=== PATIENT | male | born 1955 | race Caucasian/White ===

== ENCOUNTER 2018-09-26 12:16 | Emergency (ER) | payer MEDICARE, OTHER ==
[2018-09-26 13:34] LABS: ABS Basophils 0 10^3/ul (0-0.2); ABS Eosinophils 0 10^3/ul (0-0.6); ABS Monocytes 0.3 10^3/ul (0-0.8); ABS Neutrophils 4.1 10^3/ul (1.5-7.7); ABS Nucleated RBC 0 10^3/ul; Eosinophil % 0.4 %; Hematocrit 40 % (42-52); Hemoglobin 13.3 g/dl (14.0-18.0); Lymphocyte % 17.7 %; Mean Corpuscular HGB Conc 34 g/dl (31-36); Mean Corpuscular Hemoglobin 30 pg (27-31); Mean Corpuscular Volume 88 fL (80-94); Mean Platelet Volume 8.5 fL (7.4-10.4); Nucleated Red Blood Cells % 0; Platelet Count 202 10^3/ul (150-450); Red Cell Distribution Width 15 % (10.5-15); White Blood Count 5.4 10^3/ul (3.5-10.8)
[2018-09-26 13:52] LABS: ALT < 3 U/L (7-52); AST 13 U/L (13-39); Albumin/Globulin Ratio 1.3 (1-3); Alkaline Phosphatase 82 U/L (34-104); Anion Gap 7 mmol/L (2-11); BUN/Creatinine Ratio 17.3 (8-20); Blood Urea Nitrogen 17 mg/dL (6-24); CO2 Carbon Dioxide 28 mmol/L (22-32); Calcium 9.2 mg/dL (8.6-10.3); Chloride 100 mmol/L (101-111); EGFR African American 94.4 (>60); Glucose 92 mg/dL (70-100); Magnesium 2.1 mg/dL (1.9-2.7); Potassium 3.7 mmol/L (3.5-5.0); Sodium 135 mmol/L (135-145)
[2018-09-26 14:20] LABS: Urine Appearance Cloudy; Urine Bacteria Absent (Absent); Urine Bilirubin Negative (Negative); Urine Blood 2+ (Negative); Urine Color Yellow; Urine Glucose Negative (Negative); Urine Ketones 1+ (Negative); Urine Nitrite Negative (Negative); Urine Protein Negative (Negative); Urine Red Blood Cell 3+(>10/hpf) (Absent); Urine Specific Gravity 1.026 (1.010-1.030); Urine Squamous Epithelial Cell Present (Absent); Urine Urobilinogen Positive (Negative); Urine White Blood Cell Trace(0-5/hpf) (Absent)
[2018-09-26 15:51] VITALS: BP 134/86
--- NOTE | 2018-09-26 17:51 | CONS ---
NEUROLOGY CONSULTATION: DATE OF CONSULT: 09/26/18 REFERRING PROVIDER: KITA Hurley LOCATION: He is in the emergency room. CHIEF COMPLAINT: Progressive supranuclear palsy, hallucinations. 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 He also has REM behavior disorder. He had been having decline in motor function, but also cognition for a month or more. He was on Azilect for a while, but he seemed to do no better if not worse and so that was stopped after about a week. He continued to have problems with hallucinations and his sleep-wake cycle was disrupted. He be up in the middle of the night and not know what time of day it was. He would fall asleep briefly in the middle of the day. Once he would fall asleep, his described excessive movements of his limbs. He had been put on clonazepam several months back and it seemed to help at first, but then it did not seem to help so much after a while. They stopped at the end of August. Most recently, he was put on a ReQuip which he took for about a week, but his hallucinations and sleep-wake cycle disorder was no better. His day and night disorientation also continued to be very problematic. We were to put him on a scheduled coming next week over things, but his felt things were intolerable at home and so brought him to the emergency room. PAST MEDICAL HISTORY: Essentially notable for Parkinsonism and chronic tobacco use. MEDICATIONS AT HOME: Consist of: 1. Carbidopa/levodopa 1 tablet p.o. t.i.d. 25/100. 2. Amantadine 100 mg in the morning and at noon. 3. He just recently stopped a ReQuip. ALLERGIES: He does not have any drug allergies. SOCIAL HISTORY: He lives with his . He smokes every day. He does not drink alcohol. He has been eating well. He has not lost any weight. He has not had any problems with nausea, vomiting, lightheadedness, or faints. He has not had any falls. There is no history of cardiac disease, diabetes, or hypertension. PHYSICAL EXAM: He is afebrile, temperature 98.7. Blood pressure is 128/90, heart rate 92 and regular. Respiratory rate is 18 and oxygen saturation is 97% on room air. Neurological exam: He has grade 3 hypomimia. He has restricted eye movements. He has a little bit of tremulousness in the hands, but no rest tremor. He has diffuse cogwheel rigidity, which is mild to moderate and is fairly symmetric. Finger taps are slow bilaterally. He is oriented to person and place currently. He knows its daytime. Language is fluent, but his train of thought is easily lost. DIAGNOSTIC STUDIES/LAB DATA: Laboratory data includes a normal CBC other than a mild anemia with a hemoglobin of 13.3, normal chemistry profile other than total bilirubin 1.2. Urinalysis notable for positive urobilinogen, 3+ red blood cells, 1+ ketone, 2+ blood. IMPRESSION: Impression is that of possible progressive supranuclear palsy with worsening neuropsychiatric symptoms. I think the first order of business is to stop the amantadine. Reinstitute clonazepam 0.5 mg at bedtime at least temporarily. We will plan to see him back in the office next week to see how he is doing. If he is not doing better, I will consider adding low dose Seroquel at that time. I have discussed the plan with Tommy and his and they are agreeable to that approach. [id number]/[facility] #: [id number] [facility]
--- NOTE | 2018-09-27 15:39 | ED ---
Complex/Multi-Sys Presentation - HPI Summary HPI Summary: Patient is a 62-year-old male who presents emergency department with a history of Parkinson's disease for worsening confusion and hallucinations. Patient's is present to the majority of the history is obtained from. Patient's states patient has been more confused and having hallucinations over the last few months. They follow with neurologist, Dr. Cloud. Patient's daughter states neurologist recently changed medication to help with his symptoms but she states they are not working. gives example of pt. wondering outside or thinking he was holding a cigarette. No associated symptoms of recent fever, cough, shortness of breath, chest pain, vomiting, diarrhea, abdominal pain, change in appetite, urinary symptoms. Symptoms are moderate in severity. No current modifying factors. No recent head injury. 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 - Allergies/Home Medications Allergies/Adverse Reactions: Allergies Allergy/AdvReac Type Severity Reaction Status Date / Time No Known Allergies Allergy Verified 09/26/18 12:35 Home Medications: Home Medications Amantadine HCl [Amantadine] 100 mg PO 0800,1200 09/26/18 [History Confirmed ] Carbidopa/Levodopa [Carbidopa-Levodopa 25-100 Tab] 1 tab PO TID 09/26/18 [ History Confirmed 09/26/18] PMH/Surg Hx/FS Hx/Imm Hx Previously Healthy: Yes Infectious Disease History: No Infectious Disease History: Denies: Traveled Outside the [place] in Last 30 Days - Social History Alcohol Use: None Substance Use Type: Reports: None Smoking Status (MU): Heavy Every Day Tobacco Smoker Review of Systems Constitutional: Negative Negative: Fever, Chills Eyes: Negative ENT: Negative Cardiovascular: Negative Respiratory: Negative Gastrointestinal: Negative Genitourinary: Negative Positive: Other - increased muslce movement Skin: Negative Neurological: Other - confusion, hallucinations All Other Systems Reviewed And Are Negative: Yes Physical Exam Triage Information Reviewed: Yes Vital Signs On Initial Exam: Initial Vitals Temp Pulse Resp BP Pulse Ox 98.7 F 92 18 128/90 97 09/26/18 12:29 09/26/18 12:29 09/26/18 12:29 09/26/18 12:29 09/26/18 12:29 Vital Signs Reviewed: Yes Appearance: Positive: Well-Appearing - Pt. sitting up in bed in NAD. Answers most questions appropriately. Confused at times. present. Skin: Positive: Warm, Dry Head/Face: Positive: Normal Head/Face Inspection Eyes: Positive: Normal, EOMI Neck: Positive: Supple Respiratory/Lung Sounds: Positive: Clear to Auscultation, Breath Sounds Present Cardiovascular: Positive: Normal, RRR Abdomen Description: Positive: Nontender, Soft Musculoskeletal: Positive: Normal, Strength/ROM Intact Neurological: Positive: Normal, CN Intact II-III Psychiatric: Positive: Affect/Mood Appropriate - Benita Coma Scale Best Eye Response: 4 - Spontaneous Best Motor Response: 6 - Obeys Commands Best Verbal Response: 5 - Oriented Coma Scale Total: 15 Diagnostics - Vital Signs Vital Signs Temp Pulse Resp BP Pulse Ox 09/26/18 15:48 99.7 F 80 18 134/86 97 09/26/18 12:29 98.7 F 92 18 128/90 97 - Laboratory Lab Results: Lab Results 09/26/18 09/26/18 09/26/18 Range/Units 13:14 13:14 13:39 WBC 5.4 (3.5-10.8) 10^3/ul RBC 4.50 (4.00-5.40) 10^6/ul Hgb 13.3 L (14.0-18.0) g/dl Hct 40 L (42-52) % MCV 88 (80-94) fL MCH 30 (27-31) pg MCHC 34 (31-36) g/dl RDW 15 (10.5-15) % Plt Count 202 (150-450) 10^3/ul MPV 8.5 (7.4-10.4) fL Neut % (Auto) 75.4 % Lymph % (Auto) 17.7 % [place] % (Auto) 6.1 % Eos % (Auto) 0.4 % Baso % (Auto) 0.4 % Absolute Neuts (auto) 4.1 (1.5-7.7) 10^3/ul Absolute Lymphs (auto) 1.0 (1.0-4.8) 10^3/ul Absolute Monos (auto) 0.3 (0-0.8) 10^3/ul Absolute Eos (auto) 0 (0-0.6) 10^3/ul Absolute Basos (auto) 0 (0-0.2) 10^3/ul Absolute Nucleated RBC 0 10^3/ul Nucleated RBC % 0 Sodium 135 (135-145) mmol/L Potassium 3.7 (3.5-5.0) mmol/L Chloride 100 L (101-111) mmol/L Carbon Dioxide 28 (22-32) mmol/L Anion Gap 7 (2-11) mmol/L BUN 17 (6-24) mg/dL Creatinine 0.98 (0.67-1.17) mg/dL Est GFR ( Amer) 94.4 (>60) Est GFR (Non-Af Amer) 78.0 (>60) BUN/Creatinine Ratio 17.3 (8-20) Glucose 92 (70-100) mg/dL Calcium 9.2 (8.6-10.3) mg/dL Magnesium 2.1 (1.9-2.7) mg/dL Total Bilirubin 1.20 H (0.2-1.0) mg/dL AST 13 (13-39) U/L ALT < 3 L (7-52) U/L Alkaline Phosphatase 82 (34-104) U/L Total Protein 7.0 (6.4-8.9) g/dL Albumin 4.0 (3.2-5.2) g/dL Globulin 3.0 (2-4) g/dL Albumin/Globulin Ratio 1.3 (1-3) Urine Color Yellow Urine Appearance Cloudy Urine pH 6.0 (5-9) Ur Specific Hydes 1.026 (1.010-1.030) Urine Protein Negative (Negative) Urine Ketones 1+ A (Negative) Urine Blood 2+ A (Negative) Urine Nitrate Negative (Negative) Urine Bilirubin Negative (Negative) Urine Urobilinogen Positive A (Negative) Ur Leukocyte Esterase Negative (Negative) Urine WBC (Auto) Trace(0-5/hpf) (Absent) Urine RBC (Auto) 3+(>10/hpf) A (Absent) Ur Squamous Epith Cells Present A (Absent) Urine Bacteria Absent (Absent) Urine Sperm Present A (Absent) Urine Glucose Negative (Negative) Result Diagrams: 09/26/18 13:14 09/26/18 13:14 Lab Statement: Any lab studies that have been ordered have been reviewed, and results considered in the medical decision making process. Complex Multi-Symp Course/Dx Course Of Treatment: Patient presenting with worsening confusion and hallucination in part sinus disease over the last 1-2 months. He is afebrile stable vital signs. No other complaints noted in the ER. Did check basic blood work and urinalysis which are unremarkable. Patient was examined and the ER by his neurologist, Dr. Cloud. Dr. Cloud would like pt. to dc amantadine as it can cause increase hallucinations. Pt. will f.u in office next week. To return to ER if sxs change or worsen. - Diagnoses Differential Diagnoses/HQI/PQRI: Metabolic Abnormality, Sepsis, Urinary Tract Infection Provider Diagnoses: Parkinson disease Discharge - Sign-Out/Discharge Documenting (check all that apply): Patient Departure Patient Received Moderate/Deep Sedation with Procedure: No - Discharge Plan Condition: Good Disposition: HOME Patient Education Materials: Parkinson Disease (ED) Referrals: Meir Cloud MD [Medical Doctor] - Additional Instructions: Follow up with Dr. Cloud next week as scheduled Dr. Cloud would like you to stop amantadine Return to ER if symptoms change or worsen - Billing Disposition and Condition Condition: GOOD Disposition: Home
== END 2018-09-26 15:48 | disposition home or self-care (01) ==
LOC: ED 12:16
DX: G20 Parkinson's disease (principal); Z72.0 Tobacco use
CPT/HCPCS: 36415; 80053; 81003; 81015; 83735; 85025; 87086; 99282

== ENCOUNTER 2021-09-27 09:49 | Inpatient (IN) ==
[2021-09-27 10:57] LABS: ABS Lymphocytes 0.7 10^3/ul (1.0-4.8); ABS Monocytes 0.5 10^3/ul (0-0.8); ABS Neutrophils 7.2 10^3/ul (1.5-7.7); Eosinophil % 0.1 %; Hematocrit 42 % (42-52); Hemoglobin 13.9 g/dL (14.0-18.0); Lymphocyte % 8.7 %; Mean Corpuscular HGB Conc 34 g/dL (31-36); Mean Corpuscular Hemoglobin 29 pg (27-31); Mean Corpuscular Volume 87 fL (80-94); Mean Platelet Volume 8.1 fL (7.4-10.4); Nucleated Red Blood Cells % 0.1; Platelet Count 317 10^3/uL (150-450); Red Cell Distribution Width 16 % (10-15); White Blood Count 8.5 10^3/uL (3.5-10.8)
[2021-09-27 11:37] LABS: Albumin 4.1 g/dL (3.2-5.2); Albumin/Globulin Ratio 1.2 (1-3); Calcium 9.6 mg/dL (8.6-10.3); Globulin 3.4 g/dL (2-4); Magnesium 2.1 mg/dL (1.9-2.7); Potassium 4.5 mmol/L (3.5-5.0); Total Protein 7.5 g/dL (6.4-8.9); eGFR CKD-EPI 69.3 (>60)
[2021-09-27] MEDS ORDERED: Azithromycin 500 mg/250 ml NS 500 MG/250 ML BAG IVPB ONE (12:28)
[2021-09-27] MEDS ORDERED: cefTRIAXone 1 gm/50 mL NS BAG 1 GM/50 ML BAG IV ONE (12:28)
[2021-09-27] MEDS ORDERED: Senna TAB 8.6 mg TAB PO PRN (15:05)
[2021-09-27 15:10] LABS: C Reactive Protein 5.34 mg/L (<8.01)
[2021-09-27] MEDS: Enoxaparin 40 MG/0.4 ML SYR SUBCUT SCH (15:53)
[2021-09-27] MEDS ORDERED: NS 0.9% 1000 ml BAG 1,000 ML IV SCH (18:30)
[2021-09-27] MEDS: Carbidopa/Levodop 25/100 MG TAB PO SCH (20:42)
[2021-09-27] MEDS: Carbidopa/Levodop CR 50/200 TAB.CR PO SCH (20:42)
[2021-09-27] MEDS ORDERED: [UNRECOGNIZED DRUG - OTHER] PO SCH (21:00)
[2021-09-27 21:09] LABS: TSH Ultra Thyroid Stim Horm 4.45 mcIU/mL (0.34-5.60)
[2021-09-27 21:20] LABS: Folate 13.36 ng/mL (5.90-24.80)
[2021-09-28 06:17] LABS: ABS Lymphocytes 1.2 10^3/ul (1.0-4.8); ABS Monocytes 0.5 10^3/ul (0-0.8); ABS Neutrophils 4.4 10^3/ul (1.5-7.7); Eosinophil % 0.6 %; Hematocrit 37 % (42-52); Hemoglobin 12.2 g/dL (14.0-18.0); Lymphocyte % 19.7 %; Mean Corpuscular HGB Conc 33 g/dL (31-36); Mean Corpuscular Hemoglobin 29 pg (27-31); Mean Corpuscular Volume 87 fL (80-94); Mean Platelet Volume 8.4 fL (7.4-10.4); Platelet Count 258 10^3/uL (150-450); Red Blood Count 4.19 10^6 /uL (4.18-5.48); Red Cell Distribution Width 15 % (10-15); White Blood Count 6.2 10^3/uL (3.5-10.8)
[2021-09-28 06:38] LABS: Calcium 8.8 mg/dL (8.6-10.3); Potassium 4.3 mmol/L (3.5-5.0); eGFR CKD-EPI 91.1 (>60)
[2021-09-28] MEDS ORDERED: NS 0.9% 500 ml BAG 500 ML IV ONE (06:53)
[2021-09-28 07:40] LABS: Urine Appearance Clear; Urine Bilirubin Negative (Negative); Urine Blood 1+ (Negative); Urine Color Yellow; Urine Glucose Negative (Negative); Urine Ketones Trace (Negative); Urine Nitrite Negative (Negative); Urine Protein Negative (Negative); Urine Specific Gravity 1.023 (1.002-1.030); Urine Urobilinogen Negative (Negative)
[2021-09-28] MEDS ORDERED: Cyanocobalamin INJ 1,000 MCG/ML VIAL 1 ML VIAL IM ONE (08:00)
[2021-09-28 08:03] LABS: Urine Amorphous Crystals Present (Absent); Urine Bacteria Absent (Absent); Urine Red Blood Cell 2+(6-10/hpf) (Absent); Urine White Blood Cell Trace(0-5/hpf) (Absent)
[2021-09-28] MEDS: Carbidopa/Levodop 25/100 MG TAB PO SCH ×3 (08:33→20:13)
[2021-09-28] MEDS: Psyllium PAK PO SCH (08:34)
[2021-09-28] MEDS ORDERED: CMCS: Entacapone 200 mg TAB (NF) PO SCH (09:00)
[2021-09-28] MEDS: Enoxaparin 40 MG/0.4 ML SYR SUBCUT SCH (16:14)
[2021-09-28] MEDS ORDERED: Piperacillin/Tazobac ADVAN 3.375 GM in NS 0.9% 100 ml BAG 100 ML IV ONE (18:45)
[2021-09-28] MEDS ORDERED: Zosyn per Pharmacy NOTE FOLLOW UP SCH (19:00)
[2021-09-28] MEDS: Carbidopa/Levodop CR 50/200 TAB.CR PO SCH (20:13)
[2021-09-28] MEDS ORDERED: Amoxicillin/Clavul 875/125 TAB (Augmentin 875 tab) PO SCH (21:00)
[2021-09-29] MEDS: ZOSYN 3.375 GM Q8H per EXTENDED INFUSION IV SCH ×4 (00:26→23:30)
[2021-09-29] MEDS ORDERED: LORazepam 2 mg VIAL 1 ml IV PUSH PRN (07:08)
[2021-09-29] MEDS ORDERED: Lorazepam PYXIS KEY PRN (07:08)
[2021-09-29 07:37] LABS: ABS Monocytes 0.4 10^3/ul (0-0.8); ABS Neutrophils 5.7 10^3/ul (1.5-7.7); Eosinophil % 0.6 %; Hematocrit 37 % (42-52); Hemoglobin 12.4 g/dL (14.0-18.0); Lymphocyte % 13.2 %; Mean Corpuscular HGB Conc 34 g/dL (31-36); Mean Corpuscular Hemoglobin 29 pg (27-31); Mean Corpuscular Volume 86 fL (80-94); Mean Platelet Volume 8.3 fL (7.4-10.4); Platelet Count 245 10^3/uL (150-450); Red Cell Distribution Width 15 % (10-15); White Blood Count 7.2 10^3/uL (3.5-10.8)
[2021-09-29] MEDS: Psyllium PAK PO SCH (07:46)
[2021-09-29] MEDS: Carbidopa/Levodop 25/100 MG TAB PO SCH ×3 (07:46→19:58)
[2021-09-29 07:54] LABS: Albumin 3.6 g/dL (3.2-5.2); Albumin/Globulin Ratio 1.2 (1-3); Globulin 2.9 g/dL (2-4); Potassium 4.1 mmol/L (3.5-5.0); Total Bilirubin 1.6 mg/dL (0.2-1.0); Total Protein 6.5 g/dL (6.4-8.9); eGFR CKD-EPI 91.7 (>60)
[2021-09-29 12:31] LABS: Direct Bilirubin 0.3 mg/dL (0.03-0.18); Indirect Bilirubin 1.3 mg/dL (0.3-1.0)
[2021-09-29] MEDS: Enoxaparin 40 MG/0.4 ML SYR SUBCUT SCH (14:09)
[2021-09-29] MEDS: Carbidopa/Levodop CR 50/200 TAB.CR PO SCH (19:58)
[2021-09-30 06:15] LABS: ABS Eosinophils 0.1 10^3/ul (0-0.6); ABS Lymphocytes 1.2 10^3/ul (1.0-4.8); ABS Monocytes 0.4 10^3/ul (0-0.8); ABS Neutrophils 4.4 10^3/ul (1.5-7.7); Eosinophil % 0.9 %; Hematocrit 37 % (42-52); Hemoglobin 12.2 g/dL (14.0-18.0); Lymphocyte % 19.9 %; Mean Corpuscular HGB Conc 33 g/dL (31-36); Mean Corpuscular Hemoglobin 29 pg (27-31); Mean Corpuscular Volume 87 fL (80-94); Mean Platelet Volume 9.2 fL (7.4-10.4); Platelet Count 228 10^3/uL (150-450); Red Cell Distribution Width 16 % (10-15); White Blood Count 6.2 10^3/uL (3.5-10.8)
[2021-09-30 06:32] LABS: Calcium 8.9 mg/dL (8.6-10.3); Potassium 4.1 mmol/L (3.5-5.0); eGFR CKD-EPI 81.1 (>60)
[2021-09-30] MEDS: ZOSYN 3.375 GM Q8H per EXTENDED INFUSION IV SCH ×2 (08:03→15:24)
[2021-09-30] MEDS: Carbidopa/Levodop 25/100 MG TAB PO SCH ×3 (08:04→21:26)
[2021-09-30] MEDS: Psyllium PAK PO SCH (08:05)
[2021-09-30] MEDS: Enoxaparin 40 MG/0.4 ML SYR SUBCUT SCH (15:25)
[2021-09-30] MEDS: Carbidopa/Levodop CR 50/200 TAB.CR PO SCH (21:26)
[2021-10-01] MEDS: ZOSYN 3.375 GM Q8H per EXTENDED INFUSION IV SCH ×3 (00:54→15:30)
[2021-10-01] MEDS: Carbidopa/Levodop 25/100 MG TAB PO SCH ×3 (08:15→22:06)
[2021-10-01] MEDS: Psyllium PAK PO SCH (08:20)
[2021-10-01] MEDS: Enoxaparin 40 MG/0.4 ML SYR SUBCUT SCH (15:30)
[2021-10-01] MEDS: Carbidopa/Levodop CR 50/200 TAB.CR PO SCH (22:06)
[2021-10-02] MEDS: ZOSYN 3.375 GM Q8H per EXTENDED INFUSION IV SCH ×3 (01:03→19:41)
[2021-10-02] MEDS: Carbidopa/Levodop 25/100 MG TAB PO SCH ×3 (10:25→22:36)
[2021-10-02] MEDS: Psyllium PAK PO SCH (10:27)
[2021-10-02] MEDS: Enoxaparin 40 MG/0.4 ML SYR SUBCUT SCH (17:44)
[2021-10-02] MEDS: Carbidopa/Levodop CR 50/200 TAB.CR PO SCH (22:36)
[2021-10-03] MEDS: ZOSYN 3.375 GM Q8H per EXTENDED INFUSION IV SCH ×2 (00:55→08:23)
[2021-10-03] MEDS: Carbidopa/Levodop 25/100 MG TAB PO SCH ×3 (08:23→22:42)
[2021-10-03] MEDS: Psyllium PAK PO SCH (08:23)
[2021-10-03 10:37] LABS: ABS Eosinophils 0.1 10^3/ul (0-0.6); ABS Monocytes 0.2 10^3/ul (0-0.8); ABS Neutrophils 2.6 10^3/ul (1.5-7.7); Eosinophil % 2.1 %; Hematocrit 37 % (42-52); Hemoglobin 12.2 g/dL (14.0-18.0); Lymphocyte % 25.7 %; Mean Corpuscular HGB Conc 33 g/dL (31-36); Mean Corpuscular Hemoglobin 29 pg (27-31); Mean Corpuscular Volume 88 fL (80-94); Mean Platelet Volume 8.2 fL (7.4-10.4); Nucleated Red Blood Cells % 0.1; Platelet Count 230 10^3/uL (150-450); Red Blood Count 4.22 10^6 /uL (4.18-5.48); Red Cell Distribution Width 15 % (10-15); White Blood Count 3.9 10^3/uL (3.5-10.8)
[2021-10-03 10:59] LABS: Calcium 8.8 mg/dL (8.6-10.3); Magnesium 1.9 mg/dL (1.9-2.7); Potassium 3.7 mmol/L (3.5-5.0); eGFR CKD-EPI 86.1 (>60)
[2021-10-03] MEDS ORDERED: NS 0.9% 500 ml BAG 500 ML IV ONE (12:40)
[2021-10-03] MEDS: Enoxaparin 40 MG/0.4 ML SYR SUBCUT SCH (15:23)
[2021-10-03] MEDS ORDERED: COVID-19 VACCINE, MRNA(MODERNA) BOOSTER/PF 50 MCG/0.25 ML IM ONE (18:25)
[2021-10-03] MEDS: Carbidopa/Levodop CR 50/200 TAB.CR PO SCH (22:41)
[2021-10-03] MEDS: Amoxicillin/Clavul 875/125 TAB (Augmentin 875 tab) PO SCH (22:42)
[2021-10-04] MEDS ORDERED: Propofol 10 MG/ML 20 ML BTL ONE (08:58)
[2021-10-04] MEDS ORDERED: Dexamethasone IV 4 MG/ML VIAL 1 ml VIAL ONE (08:58)
[2021-10-04] MEDS ORDERED: Lidocaine 2% PF 5 ML VIAL ONE (08:58)
[2021-10-04] MEDS ORDERED: Ondansetron 4 mg VIAL 2 MG/ML 2 ml VIAL ONE (08:58)
[2021-10-04] MEDS: Amoxicillin/Clavul 875/125 TAB (Augmentin 875 tab) PO SCH (09:53)
[2021-10-04] MEDS: Carbidopa/Levodop 25/100 MG TAB PO SCH ×3 (09:54→20:15)
[2021-10-04] MEDS: Psyllium PAK PO SCH (09:54)
[2021-10-04] MEDS: Enoxaparin 40 MG/0.4 ML SYR SUBCUT SCH (15:24)
[2021-10-04] MEDS: Carbidopa/Levodop CR 50/200 TAB.CR PO SCH (20:15)
[2021-10-05] MEDS ORDERED: NS 0.9% 500 ml BAG 500 ML IV ONE (10:40)
[2021-10-05 11:35] VITALS: BP 97/58
[2021-10-05] MEDS: Psyllium PAK PO SCH (12:45)
[2021-10-05] MEDS: Carbidopa/Levodop 25/100 MG TAB PO SCH (13:00)
== END 2021-10-05 09:35 | DRG 56 ==
LOC: ED 09:49 → SUATTDRO 14:35 → EDHOLD 14:35 → MEDTELE 16:46
PROVIDERS: ADMIT Internal Medicine; ATTEND Internal Medicine

== ENCOUNTER 2021-10-05 10:20 | Inpatient (IN) ==
[2021-10-05] MEDS ORDERED: Senna TAB 8.6 mg TAB PO PRN (16:45)
[2021-10-05] MEDS: Enoxaparin 40 MG/0.4 ML SYR SUBCUT SCH (21:05)
[2021-10-05] MEDS: Carbidopa/Levodop 25/100 MG TAB PO SCH (21:06)
[2021-10-05] MEDS: Carbidopa/Levodop CR 50/200 TAB.CR PO SCH (21:06)
[2021-10-06] MEDS: Carbidopa/Levodop 25/100 MG TAB PO SCH ×3 (10:53→20:14)
[2021-10-06] MEDS: Carbidopa/Levodop CR 50/200 TAB.CR PO SCH (20:12)
[2021-10-06] MEDS: Enoxaparin 40 MG/0.4 ML SYR SUBCUT SCH (20:12)
[2021-10-07 06:24] LABS: ABS Eosinophils 0.2 10^3/ul (0-0.6); ABS Lymphocytes 1.4 10^3/ul (1.0-4.8); ABS Monocytes 0.5 10^3/ul (0-0.8); ABS Neutrophils 2.4 10^3/ul (1.5-7.7); Eosinophil % 3.9 %; Hematocrit 37 % (42-52); Lymphocyte % 31.3 %; Mean Corpuscular HGB Conc 33 g/dL (31-36); Mean Corpuscular Hemoglobin 29 pg (27-31); Mean Corpuscular Volume 88 fL (80-94); Mean Platelet Volume 8.1 fL (7.4-10.4); Nucleated Red Blood Cells % 0.2; Platelet Count 185 10^3/uL (150-450); Red Blood Count 4.18 10^6 /uL (4.18-5.48); Red Cell Distribution Width 16 % (10-15); White Blood Count 4.5 10^3/uL (3.5-10.8)
[2021-10-07 06:49] LABS: Albumin 3.3 g/dL (3.2-5.2); Albumin/Globulin Ratio 1.3 (1-3); Calcium 8.6 mg/dL (8.6-10.3); Globulin 2.6 g/dL (2-4); Potassium 4.3 mmol/L (3.5-5.0); Total Bilirubin 0.6 mg/dL (0.2-1.0); Total Protein 5.9 g/dL (6.4-8.9)
[2021-10-07] MEDS: Carbidopa/Levodop 25/100 MG TAB PO SCH ×3 (09:59→21:09)
[2021-10-07] MEDS: Enoxaparin 40 MG/0.4 ML SYR SUBCUT SCH (19:14)
[2021-10-07] MEDS: Carbidopa/Levodop CR 50/200 TAB.CR PO SCH (21:09)
[2021-10-08] MEDS: Carbidopa/Levodop 25/100 MG TAB PO SCH ×3 (08:22→20:45)
[2021-10-08] MEDS: Enoxaparin 40 MG/0.4 ML SYR SUBCUT SCH (18:39)
[2021-10-08] MEDS: Carbidopa/Levodop CR 50/200 TAB.CR PO SCH (20:46)
[2021-10-09] MEDS: Carbidopa/Levodop 25/100 MG TAB PO SCH ×3 (09:14→21:02)
[2021-10-09] MEDS: Enoxaparin 40 MG/0.4 ML SYR SUBCUT SCH (18:52)
[2021-10-09] MEDS: Carbidopa/Levodop CR 50/200 TAB.CR PO SCH (21:03)
[2021-10-10] MEDS: Carbidopa/Levodop 25/100 MG TAB PO SCH ×3 (09:34→21:31)
[2021-10-10] MEDS: Enoxaparin 40 MG/0.4 ML SYR SUBCUT SCH (18:42)
[2021-10-10] MEDS: Carbidopa/Levodop CR 50/200 TAB.CR PO SCH (21:30)
[2021-10-11] MEDS: Carbidopa/Levodop 25/100 MG TAB PO SCH ×3 (09:06→21:26)
[2021-10-11] MEDS: Enoxaparin 40 MG/0.4 ML SYR SUBCUT SCH (17:36)
[2021-10-11] MEDS: Carbidopa/Levodop CR 50/200 TAB.CR PO SCH (21:28)
[2021-10-12] MEDS: Carbidopa/Levodop 25/100 MG TAB PO SCH ×3 (09:25→21:52)
[2021-10-12] MEDS: Enoxaparin 40 MG/0.4 ML SYR SUBCUT SCH (19:06)
[2021-10-12] MEDS: Carbidopa/Levodop CR 50/200 TAB.CR PO SCH (21:52)
[2021-10-13 06:08] VITALS: BP 133/75
[2021-10-13] MEDS: Carbidopa/Levodop 25/100 MG TAB PO SCH (09:04)
[2021-10-13 11:17] LABS: Rapid COVID-19 Molecular Undetected (Undetected)
== END 2021-10-13 13:07 | DRG 57 ==
LOC: PMRU 15:11
PROVIDERS: ADMIT Physical Medicine & Rehabilitation; ATTEND Physical Medicine & Rehabilitation

== ENCOUNTER 2023-10-19 11:34 | Inpatient (IN) ==
[2023-10-19 12:39] LABS: ABS Monocytes 0.5 10^3/uL (0.0-1.1); ABS Neutrophils 9.3 10^3/uL (1.5-7.6); ABS Nucleated RBC 0.01 10^3/ul; Eosinophil % 0.3 %; Hematocrit 38.5 % (38-53); Hemoglobin 12.7 g/dL (13.2-16.3); Lymphocyte % 9.2 %; Mean Corpuscular Hemoglobin 30.1 pg (27-33); Mean Corpuscular Hgb Conc 33.1 g/dL (31-36); Mean Corpuscular Volume 90.9 fL (80-97); Mean Platelet Volume 8.2 fL (7.5-11.2); Nucleated Red Blood Cells % 0.1 %/100WBC (0.0-0.8); Platelet Count 336 10^3/uL (150-450); Red Blood Count 4.23 10^6/uL (4.06-5.63); Red Cell Distribution Width 13.8 % (12-17); White Blood Count 10.8 10^3/uL (3.6-10.2)
[2023-10-19 12:50] LABS: Activated Partial Thrombo Time 31.6 seconds (26.0-38.0); INR 1.52 (0.83-1.13)
[2023-10-19 13:04] LABS: High Sens Troponin Baseline 4 pg/mL (<20)
[2023-10-19 13:30] LABS: ALT 10 U/L (7-52); Albumin/Globulin Ratio 1.1 (1-3); Alkaline Phosphatase 169 U/L (35-149); Blood Urea Nitrogen 27 mg/dL (6-24); C Reactive Protein 249.01 mg/L (<8.01); CO2 Carbon Dioxide 30 mmol/L (22-32); Calcium 9.4 mg/dL (8.6-10.3); Chloride 104 mmol/L (101-111); Creatinine, Serum 0.95 mg/dL (0.67-1.17); Globulin 3.6 g/dL (2-4); Glucose 93 mg/dL (70-100); Sodium 143 mmol/L (135-145); Total Bilirubin 1.1 mg/dL (0.2-1.0); Total Protein 7.6 g/dL (6.4-8.9); eGFR CKD-EPI 88.3 (>60)
[2023-10-19] MEDS: Ondansetron 4 mg VIAL 2 MG/ML 2 ml VIAL IV ONE (13:30)
[2023-10-19 13:32] LABS: Anion Gap 9 mmol/L (2-16)
[2023-10-19 14:31] LABS: Potassium Redraw 4.2 mmol/L (3.5-5.0)
[2023-10-19 15:05] LABS: Urine Appearance Turbid; Urine Bilirubin Negative (Negative); Urine Blood Negative (Negative); Urine Color Yellow; Urine Glucose Negative (Negative); Urine Ketones 1+ (Negative); Urine Nitrite Negative (Negative); Urine Protein 1+ (>=30 mg/dL) (Negative); Urine Specific Gravity 1.034 (1.002-1.030); Urine Urobilinogen 1+ (Negative); Urine pH 5.5 (5.0-8.0)
[2023-10-19 15:17] LABS: Urine Bacteria 1+ /HPF (Absent); Urine Red Blood Cell 2+(6-10/hpf) /HPF (0-Trace); Urine Squamous Epithelial Cell Present /HPF (Absent); Urine White Blood Cell Trace(0-5/hpf) /HPF (0-Trace)
[2023-10-19] MEDS: Iohexol 350 (CONTRAST) 500 ML MDV IV ONE (16:04)
[2023-10-19] MEDS: cefTRIAXone 1 gm/50 mL D5W 1 GM/50 ML BAG IV ONE (17:09)
[2023-10-19] MEDS: Azithromycin 500 mg/250 ml NS 500 MG/250 ML BAG IVPB ONE (17:10)
[2023-10-19] MEDS: levETIRAcetam IV 750 MG in NS 0.9% 100 ml BAG 100 ML IVPB SCH (22:18)
[2023-10-19] MEDS: Carbidopa/Levodop CR 50/200 TAB.CR PO SCH (22:29)
[2023-10-19] MEDS: DROXIDOPA 100 MG PO SCH (22:29)
[2023-10-20] MEDS: Haloperidol 5 mg/ml SDV IV/IM 5 MG/ML AMP IV SLOW PU ONE (00:43)
[2023-10-20] MEDS: Levothyroxine 100 MCG/5 ML VIAL IV SCH (05:36)
[2023-10-20 06:34] LABS: ABS Eosinophils 0.1 10^3/uL (0.0-0.5); ABS Lymphocytes 1.2 10^3/uL (1.0-4.8); ABS Monocytes 0.4 10^3/uL (0.0-1.1); ABS Neutrophils 6.2 10^3/uL (1.5-7.6); ABS Nucleated RBC 0.01 10^3/ul; Eosinophil % 0.9 %; Hematocrit 36.6 % (38-53); Hemoglobin 12.2 g/dL (13.2-16.3); Lymphocyte % 15.1 %; Mean Corpuscular Hemoglobin 30.2 pg (27-33); Mean Corpuscular Hgb Conc 33.2 g/dL (31-36); Mean Platelet Volume 8.2 fL (7.5-11.2); Nucleated Red Blood Cells % 0.2 %/100WBC (0.0-0.8); Platelet Count 316 10^3/uL (150-450); Red Blood Count 4.02 10^6/uL (4.06-5.63); Red Cell Distribution Width 13.5 % (12-17)
[2023-10-20 06:49] LABS: Albumin 3.6 g/dL (3.2-5.2); Albumin/Globulin Ratio 1.2 (1-3); Calcium 9.1 mg/dL (8.6-10.3); Creatinine, Serum 0.64 mg/dL (0.67-1.17); Magnesium 2.2 mg/dL (1.9-2.7); Potassium 3.9 mmol/L (3.5-5.0); Total Bilirubin 0.7 mg/dL (0.2-1.0); Total Protein 6.6 g/dL (6.4-8.9); eGFR CKD-EPI 104.4 (>60)
[2023-10-20 08:18] LABS: TSH Ultra Thyroid Stim Horm 4.21 mcIU/mL (0.34-5.60)
[2023-10-20] MEDS: cefTRIAXone 1 gm/50 mL D5W 1 GM/50 ML BAG IV SCH (17:15)
[2023-10-20] MEDS: Azithromycin 500 mg/250 ml NS 500 MG/250 ML BAG IVPB SCH (18:10)
[2023-10-20] MEDS: Furosemide 20 mg/2 ml IV VIAL IV ONE (18:14)
[2023-10-21] MEDS: Haloperidol 5 mg/ml SDV IV/IM 5 MG/ML AMP IM PRN (17:55)
[2023-10-23] MEDS: Atropine 1% (ORAL/SL) 15 ML BTL SL SCH (11:22)
[2023-10-23] MEDS: Scopolamine 1 mg/72hr PATCH TRANSDERM SCH (15:14)
[2023-10-24 00:44] VITALS: BP 121/88
[2023-10-24] MEDS ORDERED: Morphine ORAL CONCENTRATE 5 MG/0.25 ML ORAL.SYRIN SL PRN (10:57)
[2023-10-24 13:50] LABS: Rapid COVID-19 Molecular Undetected (Undetected)
== END 2023-10-25 09:30 | DRG 177 ==
LOC: EDHOLD 11:34 → ED 11:34 → SUATTDRO 19:12 → MED 20:19 → SUATTDRO 10-20 08:36
PROVIDERS: ADMIT Internal Medicine; ATTEND Internal Medicine